=== PATIENT | male | born 1995 | race Caucasian/White ===

== ENCOUNTER 2016-09-13 12:59 | Emergency (ER) | payer OTHER ==
[~2016-09-13] VITALS: Ht 172 cm; Wt 50.0 kg
[~2016-09-13 12:59] MED LIST: PERCOCET 325 MG1 TA2 PO
[2016-09-13 13:01] VITALS: BP 132/66; PULSE 81; TEMP 97.6
== END 2016-09-13 14:59 | disposition home or self-care (01) ==
LOC: COL.ER 12:59
DX: S93.402A Sprain of unspecified ligament of left ankle, initial encounter (principal); X50.1XXA Overexertion from prolonged static or awkward postures, initial encounter; Y93.66 Activity, soccer; Y92.830 Public park as the place of occurrence of the external cause

== ENCOUNTER 2017-12-03 22:23 | Emergency (ER) | payer OTHER ==
[~2017-12-03] VITALS: Ht 172 cm; Wt 57.0 kg
[2017-12-03 22:26] VITALS: BP 115/56; TEMP 99.2
[2017-12-04] VITALS: PULSE 72
== END 2017-12-04 | disposition home or self-care (01) ==
LOC: COL.ER 22:23
DX: S93.402A Sprain of unspecified ligament of left ankle, initial encounter (principal); X50.0XXA Overexertion from strenuous movement or load, initial encounter; Y93.66 Activity, soccer